=== PATIENT | female | born 1945 | race Caucasian/White ===

== ENCOUNTER 2023-06-11 20:53 | Inpatient (IN) ==
[2023-06-11 21:45] LABS: Hematocrit 18.6 % (35-45); Hemoglobin 6.8 g/dL (11.5-14.3); Mean Corpuscular Hemoglobin 30.3 pg (27-33); Mean Corpuscular Hgb Conc 36.6 g/dL (31-36); Mean Corpuscular Volume 82.8 fL (80-97); Red Blood Count 2.25 10^6/uL (3.63-4.92); Red Cell Distribution Width 16.3 % (12-17); White Blood Count 4.5 10^3/uL (3.8-11.8)
[2023-06-11 21:59] LABS: Albumin/Globulin Ratio 1.3 (1-3); Calcium 8.1 mg/dL (8.6-10.3); Creatinine, Serum 0.77 mg/dL (0.51-0.95); Potassium 3.7 mmol/L (3.5-5.0); Total Bilirubin 0.6 mg/dL (0.2-1.0); eGFR CKD-EPI 79.9 (>60)
[2023-06-11 22:22] LABS: ABS Lymphocytes 1.7 10^3/uL (1.0-4.8); ABS Monocytes 0.6 10^3/uL (0.0-0.9); ABS Neutrophils 2.1 10^3/uL (1.5-7.6); ABS Nucleated RBC 0.01 10^3/ul; Eosinophil % 0.8 %; Lymphocyte % 37.6 %; Mean Platelet Volume 8.1 fL (7.5-11.2); Nucleated Red Blood Cells % 0.3 %/100WBC (0.0-0.8); Platelet Count 16 10^3/uL (150-450); RBC Morphology Normal (Normal)
[2023-06-11 23:08] LABS: High Sensitivity Troponin 1 Hr 7 pg/mL (<15)
[2023-06-12] MEDS ORDERED: Albuterol HFA INHALER 8 gm MDI INH PRN (00:53)
[2023-06-12 03:10] LABS: Hematocrit for Retic CNT 18.6 % (35-45); RBC Retic Count 2.25 10^6/ul (3.63-4.92)
[2023-06-12 03:30] LABS: Folate 11.41 ng/mL (5.90-24.80)
[2023-06-12 05:20] LABS: Hematocrit 22.1 % (35-45); Hemoglobin 7.9 g/dL (11.5-14.3); Mean Corpuscular Hemoglobin 30.1 pg (27-33); Mean Corpuscular Hgb Conc 35.7 g/dL (31-36); Mean Corpuscular Volume 84.3 fL (80-97); Red Blood Count 2.62 10^6/uL (3.63-4.92); Red Cell Distribution Width 15.9 % (12-17); White Blood Count 4.1 10^3/uL (3.8-11.8)
[2023-06-12 05:46] LABS: C Reactive Protein 5.47 mg/L (<8.01); Calcium 7.9 mg/dL (8.6-10.3); Creatinine, Serum 0.8 mg/dL (0.51-0.95); Magnesium 2.4 mg/dL (1.9-2.7); Potassium 3.8 mmol/L (3.5-5.0); eGFR CKD-EPI 76.3 (>60)
[2023-06-12 06:05] LABS: Ferritin 406.7 ng/mL (11-307)
[2023-06-12 07:25] LABS: Mean Platelet Volume 8.2 fL (7.5-11.2); Platelet Count 16 10^3/uL (150-450)
[2023-06-12 07:29] LABS: ABS Lymphocytes 1.4 10^3/uL (1.0-4.8); ABS Monocytes 0.5 10^3/uL (0.0-0.9); ABS Neutrophils 2.1 10^3/uL (1.5-7.6); Eosinophil % 1.1 %; Lymphocyte % 34.4 %; Nucleated Red Blood Cells % 0.1 %/100WBC (0.0-0.8)
[2023-06-12] MEDS ORDERED: Pantoprazole VIAL 40 MG VIAL IV SCH (09:00)
[2023-06-12] MEDS: Tiotropium Brom/Olodaterol MDI (ACUTE) INH SCH (10:37)
[2023-06-12] MEDS: CMCS:Anastrozole 1 mg TAB (NF) PO SCH (10:40)
[2023-06-12] MEDS: Lidocaine 2% PF 5 ML VIAL INJ ONE (12:53)
[2023-06-12 13:01] LABS: Hepatitis B Surface Antigen Nonreactive (Nonreactive)
[2023-06-12 13:06] LABS: Hepatitis A Ab IgM Negative (Negative)
[2023-06-12 13:07] LABS: Hepatitis B Core IgM Nonreactive (Nonreactive)
[2023-06-12 13:10] LABS: HIV 4th Generation Nonreactive (Nonreactive)
[2023-06-12] MEDS: Cyanocobalamin INJ 1,000 MCG/ML VIAL 1 ML VIAL IM SCH (13:12)
[2023-06-12 13:19] LABS: Hepatitis C Antibody Negative (Negative)
[2023-06-12 13:47] LABS: INR 1.13 (0.83-1.13)
[2023-06-12 17:07] LABS: Platelet Count 18 10^3/uL (150-450)
[2023-06-13] MEDS: Ondansetron 4 mg VIAL 2 MG/ML 2 ml VIAL IV ONE (00:41)
[2023-06-13 06:12] LABS: Creatinine, Serum 0.73 mg/dL (0.51-0.95); Magnesium 2.1 mg/dL (1.9-2.7); Potassium 4.2 mmol/L (3.5-5.0); eGFR CKD-EPI 85.2 (>60)
[2023-06-13 06:20] LABS: Hematocrit 21.2 % (35-45); Hemoglobin 7.7 g/dL (11.5-14.3); Mean Corpuscular Hemoglobin 30.9 pg (27-33); Mean Corpuscular Hgb Conc 36.4 g/dL (31-36); Mean Corpuscular Volume 84.8 fL (80-97); Mean Platelet Volume 7.7 fL (7.5-11.2); Platelet Count 37 10^3/uL (150-450); Red Blood Count 2.51 10^6/uL (3.63-4.92); Red Cell Distribution Width 15.8 % (12-17); White Blood Count 5.4 10^3/uL (3.8-11.8)
[2023-06-13 06:21] LABS: Anisocytosis 2+; Macrocytosis 1+; Microcytosis 1+
[2023-06-13 08:51] LABS: ABS Eosinophils 0.1 10^3/uL (0.0-0.5); ABS Lymphocytes 1.7 10^3/uL (1.0-4.8); ABS Monocytes 0.9 10^3/uL (0.0-0.9); ABS Neutrophils 2.7 10^3/uL (1.5-7.6); ABS Nucleated RBC 0.01 10^3/ul; Eosinophil % 1.2 %; Lymphocyte % 31.9 %; Nucleated Red Blood Cells % 0.2 %/100WBC (0.0-0.8)
[2023-06-14 07:13] LABS: Calcium 8.2 mg/dL (8.6-10.3); Creatinine, Serum 0.79 mg/dL (0.51-0.95); Potassium 4.5 mmol/L (3.5-5.0); eGFR CKD-EPI 77.5 (>60)
[2023-06-14 07:45] LABS: Hematocrit 19.7 % (35-45); Hemoglobin 6.9 g/dL (11.5-14.3); Mean Corpuscular Hemoglobin 29.9 pg (27-33); Mean Corpuscular Hgb Conc 35.2 g/dL (31-36); Mean Corpuscular Volume 85.1 fL (80-97); Mean Platelet Volume 8.2 fL (7.5-11.2); Platelet Count 21 10^3/uL (150-450); Red Blood Count 2.31 10^6/uL (3.63-4.92); Red Cell Distribution Width 15.7 % (12-17); White Blood Count 4.7 10^3/uL (3.8-11.8)
[2023-06-14 08:00] LABS: ABS Eosinophils 0.1 10^3/uL (0.0-0.5); ABS Lymphocytes 1.6 10^3/uL (1.0-4.8); ABS Monocytes 0.7 10^3/uL (0.0-0.9); ABS Neutrophils 2.3 10^3/uL (1.5-7.6); ABS Nucleated RBC 0.01 10^3/ul; Anisocytosis 2+; Eosinophil % 2.4 %; Lymphocyte % 33.4 %; Nucleated Red Blood Cells % 0.2 %/100WBC (0.0-0.8)
[2023-06-14 09:44] LABS: INR 1.1 (0.83-1.13)
[2023-06-14 14:10] LABS: Direct Bilirubin 0.1 mg/dL (0.03-0.18); Indirect Bilirubin 0.4 mg/dL (0.3-1.0); Total Bilirubin 0.5 mg/dL (0.2-1.0)
[2023-06-14 14:41] LABS: Parvovirus (B19) IgG Antibody Positive (Negative); Parvovirus (B19) IgM Antibody Negative (Negative)
[2023-06-14 16:08] LABS: Cytomegalovirus IgG Antibody Positive (Negative)
[2023-06-14 16:20] LABS: Hematocrit 22.5 % (35-45); Hemoglobin 8.2 g/dL (11.5-14.3); Mean Corpuscular Hemoglobin 30.2 pg (27-33); Mean Corpuscular Hgb Conc 36.3 g/dL (31-36); Mean Corpuscular Volume 83.3 fL (80-97); Red Cell Distribution Width 16.8 % (12-17); White Blood Count 5.1 10^3/uL (3.8-11.8)
[2023-06-14] MEDS: fentaNYL 100 mcg/2 ml 50 MCG/ML VIAL ONE (16:27)
[2023-06-14] MEDS: Midazolam 2 mg/2 ml VIAL 1 mg/ml 2 ml VIAL (2 mg) ONE (16:27)
[2023-06-14 16:43] LABS: Mean Platelet Volume 7.8 fL (7.5-11.2); Platelet Count 18 10^3/uL (150-450)
[2023-06-15 00:25] LABS: Mean Platelet Volume 8.3 fL (7.5-11.2); Platelet Count 25 10^3/uL (150-450)
[2023-06-15 06:51] LABS: Calcium 8.4 mg/dL (8.6-10.3); Creatinine, Serum 0.83 mg/dL (0.51-0.95); Magnesium 1.9 mg/dL (1.9-2.7); Potassium 4.5 mmol/L (3.5-5.0)
[2023-06-15 07:11] LABS: Hematocrit 20.8 % (35-45); Hemoglobin 7.5 g/dL (11.5-14.3); Mean Corpuscular Hemoglobin 29.8 pg (27-33); Mean Corpuscular Hgb Conc 36.1 g/dL (31-36); Mean Corpuscular Volume 82.6 fL (80-97); Red Blood Count 2.52 10^6/uL (3.63-4.92); Red Cell Distribution Width 16.7 % (12-17); White Blood Count 5.5 10^3/uL (3.8-11.8)
[2023-06-15 08:43] LABS: ABS Eosinophils 0.1 10^3/uL (0.0-0.5); ABS Lymphocytes 1.7 10^3/uL (1.0-4.8); ABS Monocytes 1.1 10^3/uL (0.0-0.9); ABS Neutrophils 2.6 10^3/uL (1.5-7.6); Eosinophil % 1.7 %; Lymphocyte % 31.3 %; Mean Platelet Volume 7.9 fL (7.5-11.2); Nucleated Red Blood Cells % 0.1 %/100WBC (0.0-0.8); Platelet Count 19 10^3/uL (150-450)
[2023-06-15 08:44] LABS: Anisocytosis 2+
[2023-06-15 15:08] LABS: Mean Platelet Volume 8.1 fL (7.5-11.2); Platelet Count 23 10^3/uL (150-450)
[2023-06-16] MEDS ORDERED: Magnesium Hydroxide LIQ 30 ML UDC PO PRN (00:51)
[2023-06-16] MEDS ORDERED: Senna TAB 8.6 mg TAB PO PRN (00:51)
[2023-06-16] MEDS ORDERED: Polyethylene Glycol 3350 17 GM PACKET PO PRN (00:51)
[2023-06-16 01:10] LABS: Hematocrit 20.3 % (35-45); Hemoglobin 7.4 g/dL (11.5-14.3); Mean Corpuscular Hgb Conc 36.5 g/dL (31-36); Mean Corpuscular Volume 82.2 fL (80-97); Mean Platelet Volume 8.4 fL (7.5-11.2); Platelet Count 29 10^3/uL (150-450); Red Blood Count 2.47 10^6/uL (3.63-4.92); Red Cell Distribution Width 16.8 % (12-17); White Blood Count 6.3 10^3/uL (3.8-11.8)
[2023-06-16] MEDS: Magnesium Hydroxide LIQ 30 ML UDC PO SCH (01:21)
[2023-06-16] MEDS: Furosemide 20 mg/2 ml IV VIAL IV SLOW PU ONE (01:21)
[2023-06-16 02:00] LABS: Urine Appearance Clear; Urine Bilirubin Negative (Negative); Urine Blood Negative (Negative); Urine Color Light-Yellow; Urine Glucose Negative (Negative); Urine Ketones Negative (Negative); Urine Nitrite Negative (Negative); Urine Protein Negative (Negative); Urine Specific Gravity 1.014 (1.002-1.030); Urine Urobilinogen Negative (Negative)
[2023-06-16 02:07] LABS: ABS Basophils 0.1 10^3/uL (0.0-0.1); ABS Eosinophils 0.1 10^3/uL (0.0-0.5); ABS Lymphocytes 1.9 10^3/uL (1.0-4.8); ABS Monocytes 1.2 10^3/uL (0.0-0.9); Anisocytosis 1+; Eosinophil % 1.4 %; Lymphocyte % 29.5 %; Nucleated Red Blood Cells % 0.1 %/100WBC (0.0-0.8)
[2023-06-16 02:24] LABS: Urine Bacteria Absent /HPF (Absent); Urine Red Blood Cell Trace(0-2/hpf) /HPF (0-Trace); Urine White Blood Cell Trace(0-5/hpf) /HPF (0-Trace)
[2023-06-16 06:06] LABS: Hematocrit 20.5 % (35-45); Hemoglobin 7.4 g/dL (11.5-14.3); Mean Corpuscular Hemoglobin 30.4 pg (27-33); Mean Corpuscular Hgb Conc 36.3 g/dL (31-36); Mean Corpuscular Volume 83.9 fL (80-97); Mean Platelet Volume 8.4 fL (7.5-11.2); Platelet Count 26 10^3/uL (150-450); Red Blood Count 2.44 10^6/uL (3.63-4.92); Red Cell Distribution Width 16.6 % (12-17); White Blood Count 5.8 10^3/uL (3.8-11.8)
[2023-06-16 06:09] LABS: Calcium 8.9 mg/dL (8.6-10.3); Creatinine, Serum 0.8 mg/dL (0.51-0.95); Potassium 4.2 mmol/L (3.5-5.0); eGFR CKD-EPI 76.3 (>60)
[2023-06-16] MEDS ORDERED: Glycerin ADULT 2.4 gm SUPP PR PRN (06:21)
[2023-06-16] MEDS ORDERED: Dibucaine 1% OINT 28.35 GM TUBE PR PRN (10:04)
[2023-06-16] MEDS: Zinc Oxide 16% PASTE (Butt Paste) 30 gm TUBE TOPICAL SCH (10:45)
[2023-06-16] MEDS: Polyethylene Glycol 3350 17 GM PACKET PO SCH (10:45)
[2023-06-16 11:44] LABS: Activated Partial Thrombo Time 27.3 seconds (26.0-38.0); INR 1.16 (0.83-1.13)
[2023-06-16 14:37] LABS: Anaplasma phagocytophilum Negative (Negative); B. miyamotoi PCR, B Negative (Negative); Babesia divergens/MO-1 Negative (Negative); Babesia ducani Negative (Negative); Ehrlichia chaffeensis Negative (Negative); Ehrlichia ewingii/canis Negative (Negative); Ehrlichia muris eauclairensis Negative (Negative)
[2023-06-17 05:31] LABS: ABS Basophils 0.1 10^3/uL (0.0-0.1); ABS Eosinophils 0.1 10^3/uL (0.0-0.5); ABS Lymphocytes 1.7 10^3/uL (1.0-4.8); ABS Monocytes 0.7 10^3/uL (0.0-0.9); ABS Neutrophils 2.6 10^3/uL (1.5-7.6); ABS Nucleated RBC 0.01 10^3/ul; Eosinophil % 1.8 %; Hematocrit 20.2 % (35-45); Hemoglobin 7.3 g/dL (11.5-14.3); Lymphocyte % 33.6 %; Mean Corpuscular Hemoglobin 30.4 pg (27-33); Mean Corpuscular Hgb Conc 36.3 g/dL (31-36); Mean Corpuscular Volume 83.7 fL (80-97); Mean Platelet Volume 8.5 fL (7.5-11.2); Nucleated Red Blood Cells % 0.2 %/100WBC (0.0-0.8); Platelet Count 13 10^3/uL (150-450); Red Blood Count 2.41 10^6/uL (3.63-4.92); Red Cell Distribution Width 16.2 % (12-17); White Blood Count 5.2 10^3/uL (3.8-11.8)
[2023-06-17 06:03] LABS: Calcium 8.6 mg/dL (8.6-10.3); Creatinine, Serum 0.79 mg/dL (0.51-0.95); Potassium 4.4 mmol/L (3.5-5.0); eGFR CKD-EPI 77.5 (>60)
[2023-06-17 13:00] LABS: Kappa Free Light Chain 4.69 mg/dL; Lambda Free Light Chain, S 2.28 mg/dL
[2023-06-17 19:23] LABS: Hematocrit 20.5 % (35-45); Hemoglobin 7.3 g/dL (11.5-14.3); Mean Corpuscular Hemoglobin 29.8 pg (27-33); Mean Corpuscular Hgb Conc 35.7 g/dL (31-36); Mean Corpuscular Volume 83.4 fL (80-97); Red Blood Count 2.46 10^6/uL (3.63-4.92); Red Cell Distribution Width 16.2 % (12-17); White Blood Count 5.3 10^3/uL (3.8-11.8)
[2023-06-17 19:54] LABS: ABS Eosinophils 0.1 10^3/uL (0.0-0.5); ABS Lymphocytes 1.6 10^3/uL (1.0-4.8); ABS Neutrophils 2.7 10^3/uL (1.5-7.6); ABS Nucleated RBC 0.01 10^3/ul; Eosinophil % 1.2 %; Lymphocyte % 29.9 %; Mean Platelet Volume 8.2 fL (7.5-11.2); Nucleated Red Blood Cells % 0.1 %/100WBC (0.0-0.8); Platelet Count 13 10^3/uL (150-450); RBC Morphology Normal (Normal)
[2023-06-17] MEDS: Calcium Polycarbophil 625mg TB PO SCH (21:07)
[2023-06-18 05:12] LABS: Mean Corpuscular Hemoglobin 30.7 pg (27-33); Mean Corpuscular Hgb Conc 36.8 g/dL (31-36); Mean Corpuscular Volume 83.3 fL (80-97); Mean Platelet Volume 7.8 fL (7.5-11.2); Platelet Count 14 10^3/uL (150-450); Red Blood Count 2.29 10^6/uL (3.63-4.92); Red Cell Distribution Width 16.3 % (12-17); White Blood Count 5.2 10^3/uL (3.8-11.8)
[2023-06-18 05:27] LABS: ABS Basophils 0.1 10^3/uL (0.0-0.1); ABS Eosinophils 0.1 10^3/uL (0.0-0.5); ABS Lymphocytes 1.5 10^3/uL (1.0-4.8); ABS Neutrophils 2.7 10^3/uL (1.5-7.6); Anisocytosis 1+; Eosinophil % 1.1 %; Lymphocyte % 27.8 %
[2023-06-18 05:37] LABS: Calcium 8.5 mg/dL (8.6-10.3); Creatinine, Serum 0.81 mg/dL (0.51-0.95); Phosphorus 3.8 mg/dL (2.5-5.0); Potassium 4.2 mmol/L (3.5-5.0); eGFR CKD-EPI 75.2 (>60)
[2023-06-18 09:59] LABS: Flag, M-protein Isotype Positive (Negative); Immunoglobulin A (IgA), S 198 mg/dL (61 - 356); Immunoglobulin G (IgG), S 1540 mg/dL (767 - 1590); Immunoglobulin M (IgM), S 165 mg/dL (37 - 286); M-protein GK 0.124 g/dL
[2023-06-18 11:29] LABS: Methylmalonic Acid 0.15 nmol/mL (<=0.40)
[2023-06-18 16:29] LABS: Hematocrit 18.8 % (35-45); Hemoglobin 6.7 g/dL (11.5-14.3); Mean Corpuscular Hgb Conc 35.9 g/dL (31-36); Mean Corpuscular Volume 83.5 fL (80-97); Mean Platelet Volume 8.2 fL (7.5-11.2); Platelet Count 15 10^3/uL (150-450); Red Blood Count 2.25 10^6/uL (3.63-4.92); Red Cell Distribution Width 16.2 % (12-17); White Blood Count 5.2 10^3/uL (3.8-11.8)
[2023-06-18 17:12] LABS: ABS Lymphocytes 1.4 10^3/uL (1.0-4.8); ABS Neutrophils 2.7 10^3/uL (1.5-7.6); ABS Nucleated RBC 0.01 10^3/ul; Eosinophil % 0.9 %; Lymphocyte % 27.3 %; Nucleated Red Blood Cells % 0.1 %/100WBC (0.0-0.8); RBC Morphology Normal (Normal); Smudge Cells Present
[2023-06-19 03:00] LABS: Hematocrit 21.2 % (35-45); Hemoglobin 7.7 g/dL (11.5-14.3); Mean Corpuscular Hemoglobin 30.3 pg (27-33); Mean Corpuscular Hgb Conc 36.4 g/dL (31-36); Mean Corpuscular Volume 83.2 fL (80-97); Mean Platelet Volume 8.8 fL (7.5-11.2); Platelet Count 13 10^3/uL (150-450); Red Blood Count 2.55 10^6/uL (3.63-4.92); Red Cell Distribution Width 15.5 % (12-17)
[2023-06-19 04:04] LABS: ABS Basophils 0.1 10^3/uL (0.0-0.1); ABS Eosinophils 0.1 10^3/uL (0.0-0.5); ABS Lymphocytes 2.2 10^3/uL (1.0-4.8); ABS Monocytes 1.5 10^3/uL (0.0-0.9); ABS Neutrophils 3.2 10^3/uL (1.5-7.6); ABS Nucleated RBC 0.02 10^3/ul; Eosinophil % 0.8 %; Nucleated Red Blood Cells % 0.3 %/100WBC (0.0-0.8); RBC Morphology Normal (Normal)
[2023-06-19 08:25] LABS: Hematocrit 23.3 % (35-45); Hemoglobin 8.4 g/dL (11.5-14.3); Mean Corpuscular Volume 83.2 fL (80-97); Mean Platelet Volume 8.6 fL (7.5-11.2); Platelet Count 13 10^3/uL (150-450); Red Cell Distribution Width 15.9 % (12-17); White Blood Count 7.3 10^3/uL (3.8-11.8)
[2023-06-19 08:59] LABS: Calcium 8.6 mg/dL (8.6-10.3); Creatinine, Serum 0.76 mg/dL (0.51-0.95); Potassium 4.1 mmol/L (3.5-5.0); eGFR CKD-EPI 81.2 (>60)
[2023-06-19 09:33] LABS: ABS Basophils 0.1 10^3/uL (0.0-0.1); ABS Eosinophils 0.1 10^3/uL (0.0-0.5); ABS Monocytes 1.5 10^3/uL (0.0-0.9); ABS Neutrophils 3.7 10^3/uL (1.5-7.6); ABS Nucleated RBC 0.02 10^3/ul; Eosinophil % 0.8 %; Lymphocyte % 27.4 %; Nucleated Red Blood Cells % 0.2 %/100WBC (0.0-0.8); RBC Morphology Normal (Normal)
[2023-06-20 00:17] LABS: Hematocrit 24.6 % (35-45); Mean Corpuscular Hemoglobin 30.5 pg (27-33); Mean Corpuscular Hgb Conc 36.4 g/dL (31-36); Red Blood Count 2.94 10^6/uL (3.63-4.92); Red Cell Distribution Width 15.2 % (12-17); White Blood Count 7.2 10^3/uL (3.8-11.8)
[2023-06-20 02:22] LABS: ABS Lymphocytes 2.3 10^3/uL (1.0-4.8); ABS Monocytes 1.5 10^3/uL (0.0-0.9); ABS Neutrophils 3.3 10^3/uL (1.5-7.6); ABS Nucleated RBC 0.03 10^3/ul; Eosinophil % 0.7 %; Lymphocyte % 32.4 %; Mean Platelet Volume 8.9 fL (7.5-11.2); Nucleated Red Blood Cells % 0.5 %/100WBC (0.0-0.8); Platelet Count 10 10^3/uL (150-450)
[2023-06-20 02:23] LABS: Anisocytosis 1+
[2023-06-20 06:28] LABS: Hematocrit 24.1 % (35-45); Hemoglobin 8.8 g/dL (11.5-14.3); Mean Corpuscular Hemoglobin 30.2 pg (27-33); Mean Corpuscular Hgb Conc 36.4 g/dL (31-36); Mean Corpuscular Volume 82.8 fL (80-97); Red Blood Count 2.91 10^6/uL (3.63-4.92); White Blood Count 6.8 10^3/uL (3.8-11.8)
[2023-06-20 07:33] LABS: Calcium 8.1 mg/dL (8.6-10.3); Creatinine, Serum 0.76 mg/dL (0.51-0.95); Magnesium 1.9 mg/dL (1.9-2.7); Phosphorus 2.7 mg/dL (2.5-5.0); Potassium 3.8 mmol/L (3.5-5.0); eGFR CKD-EPI 81.2 (>60)
[2023-06-20 09:45] LABS: ABS Basophils 0.1 10^3/uL (0.0-0.1); ABS Eosinophils 0.1 10^3/uL (0.0-0.5); ABS Monocytes 1.5 10^3/uL (0.0-0.9); ABS Neutrophils 3.3 10^3/uL (1.5-7.6); ABS Nucleated RBC 0.01 10^3/ul; Eosinophil % 0.8 %; Lymphocyte % 28.7 %; Mean Platelet Volume 8.8 fL (7.5-11.2); Nucleated Red Blood Cells % 0.2 %/100WBC (0.0-0.8); Platelet Count 9 10^3/uL (150-450); RBC Morphology Normal (Normal)
[2023-06-20 18:02] VITALS: BP 148/62
[2023-06-20 18:47] LABS: Hematocrit 27.2 % (35-45); Hemoglobin 9.7 g/dL (11.5-14.3); Mean Corpuscular Hemoglobin 30.5 pg (27-33); Mean Corpuscular Hgb Conc 35.9 g/dL (31-36); Mean Platelet Volume 8.7 fL (7.5-11.2); Platelet Count 10 10^3/uL (150-450); Red Cell Distribution Width 15.2 % (12-17); White Blood Count 6.7 10^3/uL (3.8-11.8)
[2023-06-20 19:36] LABS: ABS Monocytes 1.6 10^3/uL (0.0-0.9); ABS Nucleated RBC 0.01 10^3/ul; Eosinophil % 0.7 %; Lymphocyte % 30.1 %; Nucleated Red Blood Cells % 0.1 %/100WBC (0.0-0.8); RBC Morphology Normal (Normal)
[2023-07-01 12:09] LABS: BM Chromosome Source Right PIC; BM Referral Reason D61.81 pancytopenia; BM Result Summary Abnormal
[2023-07-01 12:11] LABS: AMLAF Reason for Referral D61.81 pancytopenia; AMLAF Result Summary Abnormal; AMLAF Source Right PIC
== END 2023-06-20 18:30 | disposition home or self-care (01) | DRG 835 ==
LOC: EDHOLD 20:53 → ED 20:53 → SUATTDRO 23:16 → MEDTELE 06-12 10:28 → MED 06-12 10:51 → SUATTDRO 06-12 16:08 → MED 06-16 22:12
PROVIDERS: ADMIT Internal Medicine; ATTEND Internal Medicine

== ENCOUNTER 2023-06-25 15:52 | Inpatient (IN) ==
[2023-06-25 17:52] LABS: Hematocrit 22.9 % (35-45); Hemoglobin 8.1 g/dL (11.5-14.3); Mean Corpuscular Hemoglobin 29.9 pg (27-33); Mean Corpuscular Hgb Conc 35.2 g/dL (31-36); Mean Corpuscular Volume 84.8 fL (80-97); Mean Platelet Volume 9.7 fL (7.5-11.2); Platelet Count 5 10^3/uL (150-450); Red Cell Distribution Width 14.9 % (12-17); White Blood Count 2.7 10^3/uL (3.8-11.8)
[2023-06-25 18:27] LABS: ABS Lymphocytes 0.6 10^3/uL (1.0-4.8); ABS Monocytes 0.4 10^3/uL (0.0-0.9); ABS Neutrophils 1.6 10^3/uL (1.5-7.6); ABS Nucleated RBC 0.01 10^3/ul; Eosinophil % 0.2 %; Lymphocyte % 22.5 %; Nucleated Red Blood Cells % 0.4 %/100WBC (0.0-0.8); RBC Morphology Normal (Normal)
[2023-06-25 18:43] LABS: Albumin 3.4 g/dL (3.2-5.2); Albumin/Globulin Ratio 1.1 (1-3); C Reactive Protein 19.13 mg/L (<8.01); Calcium 7.6 mg/dL (8.6-10.3); Creatinine, Serum 0.72 mg/dL (0.51-0.95); Direct Bilirubin 0.3 mg/dL (0.03-0.18); Globulin 3.1 g/dL (2-4); Potassium 3.5 mmol/L (3.5-5.0); Total Protein 6.5 g/dL (6.4-8.9); eGFR CKD-EPI 86.6 (>60)
[2023-06-25 18:47] LABS: Hematocrit 25.6 % (35-45); Hemoglobin 8.5 g/dL (11.5-14.3); Mean Corpuscular Hemoglobin 30.1 pg (27-33); Mean Corpuscular Hgb Conc 33.3 g/dL (31-36); Mean Corpuscular Volume 90.2 fL (80-97); Mean Platelet Volume 11.9 fL (7.5-11.2); Platelet Count 3 10^3/uL (150-450); Red Blood Count 2.84 10^6/uL (3.63-4.92); Red Cell Distribution Width 15.2 % (12-17); White Blood Count 2.8 10^3/uL (3.8-11.8)
[2023-06-25 19:27] LABS: ABS Lymphocytes 0.5 10^3/uL (1.0-4.8); ABS Monocytes 0.4 10^3/uL (0.0-0.9); ABS Neutrophils 1.8 10^3/uL (1.5-7.6); ABS Nucleated RBC 0.01 10^3/ul; Eosinophil % 0.2 %; Lymphocyte % 19.1 %; Nucleated Red Blood Cells % 0.3 %/100WBC (0.0-0.8); RBC Morphology Normal (Normal)
[2023-06-25 19:56] LABS: Urine Appearance Clear; Urine Bilirubin Negative (Negative); Urine Blood Negative (Negative); Urine Color Yellow; Urine Glucose Negative (Negative); Urine Ketones 1+ (Negative); Urine Nitrite Negative (Negative); Urine Protein Trace (Negative); Urine Specific Gravity 1.028 (1.002-1.030); Urine Urobilinogen Negative (Negative); Urine pH 5.5 (5.0-8.0)
[2023-06-26] MEDS ORDERED: Dibucaine 1% OINT 28.35 GM TUBE PR PRN (01:21)
[2023-06-26 06:10] LABS: Hematocrit 22.5 % (35-45); Hemoglobin 8.2 g/dL (11.5-14.3); Mean Corpuscular Hemoglobin 30.8 pg (27-33); Mean Corpuscular Hgb Conc 36.4 g/dL (31-36); Mean Corpuscular Volume 84.6 fL (80-97); Platelet Count 5 10^3/uL (150-450); Red Blood Count 2.66 10^6/uL (3.63-4.92); Red Cell Distribution Width 15.1 % (12-17); White Blood Count 4.3 10^3/uL (3.8-11.8)
[2023-06-26 06:18] LABS: Calcium 7.9 mg/dL (8.6-10.3); Creatinine, Serum 0.66 mg/dL (0.51-0.95); eGFR CKD-EPI 90.9 (>60)
[2023-06-26] MEDS: CMCS:Anastrozole 1 mg TAB (NF) PO SCH (08:46)
[2023-06-26] MEDS: Tiotropium Brom/Olodaterol MDI (ACUTE) INH SCH (09:03)
[2023-06-26] MEDS: VENETOCLAX 100 MG PO ONE (12:21)
[2023-06-26] MEDS: Dexamethasone IV 40 MG in NS 0.9% 50 ML 50 ML IVPB ONE (13:26)
[2023-06-26 13:37] LABS: ABS Lymphocytes 0.6 10^3/uL (1.0-4.8); ABS Monocytes 0.4 10^3/uL (0.0-0.9); ABS Neutrophils 4.8 10^3/uL (1.5-7.6); ABS Nucleated RBC 0.01 10^3/ul; Hematocrit 23.7 % (35-45); Hemoglobin 8.6 g/dL (11.5-14.3); Lymphocyte % 10.2 %; Mean Corpuscular Hemoglobin 31.9 pg (27-33); Mean Corpuscular Hgb Conc 36.4 g/dL (31-36); Mean Corpuscular Volume 87.6 fL (80-97); Mean Platelet Volume 9.5 fL (7.5-11.2); Nucleated Red Blood Cells % 0.2 %/100WBC (0.0-0.8); Platelet Count 7 10^3/uL (150-450); Red Blood Count 2.71 10^6/uL (3.63-4.92); Red Cell Distribution Width 14.7 % (12-17); White Blood Count 5.8 10^3/uL (3.8-11.8)
[2023-06-26] MEDS: NS 0.9% IVPB ONE (14:19)
[2023-06-26] MEDS: DECITABINE IVPB ONE (14:19)
[2023-06-26] MEDS: Hydrocortisone INJ 100 MG/2ML 2 ML VIAL IV ONE (15:10)
[2023-06-26] MEDS: Famotidine IV 10 MG/ML 2 ml VIAL (20 mg) IV SLOW PU ONE (15:10)
[2023-06-26] MEDS: methylPREDNISolone SOD SUCC 40 mg/ml 1 ml VIAL IV ONE ×2 (15:10→16:28)
[2023-06-26] MEDS: Albuterol HFA INHALER 8 gm MDI INH PRN (15:58)
[2023-06-26] MEDS: Furosemide 40 mg/4 ml IV VIAL IV ONE (19:56)
[2023-06-27 00:46] LABS: Hematocrit 22.1 % (35-45); Hemoglobin 7.9 g/dL (11.5-14.3); Mean Corpuscular Hemoglobin 30.6 pg (27-33); Mean Corpuscular Volume 84.9 fL (80-97); Red Cell Distribution Width 14.7 % (12-17); White Blood Count 6.2 10^3/uL (3.8-11.8)
[2023-06-27 01:03] LABS: ABS Lymphocytes 0.5 10^3/uL (1.0-4.8); ABS Monocytes 0.4 10^3/uL (0.0-0.9); ABS Neutrophils 5.3 10^3/uL (1.5-7.6); ABS Nucleated RBC 0.01 10^3/ul; Lymphocyte % 8.1 %; Mean Platelet Volume 7.9 fL (7.5-11.2); Nucleated Red Blood Cells % 0.2 %/100WBC (0.0-0.8); Platelet Count 13 10^3/uL (150-450)
[2023-06-27] MEDS: guaiFENesin 100 mg/5 ml LIQ unit dose cup PO PRN (01:26)
[2023-06-27] MEDS: Albuterol/Ipratropium NEB.SOL (2.5/0.5 MG) 3 ML NEB.SOLN INH PRN (05:57)
[2023-06-27 08:32] LABS: Creatinine, Serum 0.69 mg/dL (0.51-0.95); Potassium 3.7 mmol/L (3.5-5.0); eGFR CKD-EPI 89.9 (>60)
[2023-06-27 08:33] LABS: ABS Lymphocytes 0.7 10^3/uL (1.0-4.8); ABS Monocytes 0.6 10^3/uL (0.0-0.9); ABS Neutrophils 6.5 10^3/uL (1.5-7.6); ABS Nucleated RBC 0.01 10^3/ul; Hematocrit 22.7 % (35-45); Hemoglobin 8.1 g/dL (11.5-14.3); Lymphocyte % 9.4 %; Mean Corpuscular Hemoglobin 30.1 pg (27-33); Mean Corpuscular Hgb Conc 35.6 g/dL (31-36); Mean Corpuscular Volume 84.7 fL (80-97); Mean Platelet Volume 8.1 fL (7.5-11.2); Nucleated Red Blood Cells % 0.2 %/100WBC (0.0-0.8); Platelet Count 11 10^3/uL (150-450); Red Blood Count 2.67 10^6/uL (3.63-4.92); Red Cell Distribution Width 14.9 % (12-17); White Blood Count 7.8 10^3/uL (3.8-11.8)
[2023-06-27] MEDS ORDERED: Famotidine IV 10 MG/ML 2 ml VIAL (20 mg) IV SLOW PU PRN (11:57)
[2023-06-27] MEDS ORDERED: methylPREDNISolone SOD SUCC 40 mg/ml 1 ml VIAL IV PRN (11:57)
[2023-06-27] MEDS: VENETOCLAX 100 MG PO SCH (12:31)
[2023-06-27] MEDS: NS 0.9% IVPB ONE (14:26)
[2023-06-27] MEDS: DECITABINE IVPB ONE (14:26)
[2023-06-27] MEDS: Ondansetron ODT 4 mg TAB 4 MG TAB PO PRN (15:41)
[2023-06-27] MEDS ORDERED: Zosyn per Pharmacy NOTE FOLLOW UP SCH (17:00)
[2023-06-27] MEDS: Furosemide 20 mg/2 ml IV VIAL IV ONE (18:35)
[2023-06-27] MEDS: Piperacillin/Tazobac 3.375 BAG 3.375 GM/100 ML BAG IV ONE (18:40)
[2023-06-27] MEDS: ZOSYN 3.375 GM Q8H per EXTENDED INFUSION IV SCH (22:24)
[2023-06-28] MEDS ORDERED: Furosemide 100 mg/10 ml IV VIAL IV ONE (03:31)
[2023-06-28] MEDS: Furosemide 40 mg/4 ml IV VIAL IV ONE ×2 (03:46→12:01)
[2023-06-28 06:09] LABS: Calcium 7.6 mg/dL (8.6-10.3); Creatinine, Serum 1.04 mg/dL (0.51-0.95); Magnesium 1.8 mg/dL (1.9-2.7); Phosphorus 4.7 mg/dL (2.5-5.0); Potassium 3.6 mmol/L (3.5-5.0); eGFR CKD-EPI 55.7 (>60)
[2023-06-28] MEDS: Albuterol/Ipratropium NEB.SOL (2.5/0.5 MG) 3 ML NEB.SOLN INH SCH ×2 (07:08→11:31)
[2023-06-28] MEDS: methylPREDNISolone SOD SUCC 40 mg/ml 1 ml VIAL IV SCH (09:36)
[2023-06-28 14:10] LABS: ABS Lymphocytes 0.4 10^3/uL (1.0-4.8); ABS Monocytes 0.3 10^3/uL (0.0-0.9); ABS Neutrophils 4.4 10^3/uL (1.5-7.6); ABS Nucleated RBC 0.02 10^3/ul; Hematocrit 19.9 % (35-45); Lymphocyte % 7.3 %; Mean Corpuscular Hemoglobin 30.5 pg (27-33); Mean Corpuscular Hgb Conc 35.2 g/dL (31-36); Mean Corpuscular Volume 86.4 fL (80-97); Mean Platelet Volume 9.2 fL (7.5-11.2); Nucleated Red Blood Cells % 0.3 %/100WBC (0.0-0.8); Platelet Count 6 10^3/uL (150-450); Red Blood Count 2.31 10^6/uL (3.63-4.92); Red Cell Distribution Width 14.8 % (12-17)
[2023-06-28] MEDS: ZOSYN 3.375 GM Q8H per EXTENDED INFUSION IV SCH (20:37)
[2023-06-29] MEDS: Furosemide 20 mg/2 ml IV VIAL IV ONE (03:19)
[2023-06-29 12:03] LABS: ABS Lymphocytes 0.4 10^3/uL (1.0-4.8); ABS Monocytes 0.4 10^3/uL (0.0-0.9); ABS Neutrophils 7.7 10^3/uL (1.5-7.6); ABS Nucleated RBC 0.02 10^3/ul; Hematocrit 25.3 % (35-45); Lymphocyte % 5.2 %; Mean Corpuscular Hemoglobin 30.9 pg (27-33); Mean Corpuscular Hgb Conc 35.7 g/dL (31-36); Mean Corpuscular Volume 86.6 fL (80-97); Mean Platelet Volume 8.4 fL (7.5-11.2); Nucleated Red Blood Cells % 0.2 %/100WBC (0.0-0.8); Platelet Count 12 10^3/uL (150-450); Red Blood Count 2.92 10^6/uL (3.63-4.92); Red Cell Distribution Width 14.6 % (12-17); White Blood Count 8.6 10^3/uL (3.8-11.8)
[2023-06-29 12:12] LABS: Creatinine, Serum 1.19 mg/dL (0.51-0.95); Magnesium 2.2 mg/dL (1.9-2.7); Potassium 3.4 mmol/L (3.5-5.0); eGFR CKD-EPI 47.4 (>60)
[2023-06-29] MEDS: Furosemide 40 mg/4 ml IV VIAL IV ONE (13:42)
[2023-06-29] MEDS: Magnesium Hydroxide LIQ 30 ML UDC PO ONE (17:32)
[2023-06-29] MEDS: KCL 20 MEQ/100 ML IVPREMIX 20 MEQ/100 ML BAG IV SCH (17:33)
[2023-06-29] MEDS ORDERED: Albuterol/Ipratropium NEB.SOL (2.5/0.5 MG) 3 ML NEB.SOLN INH PRN (18:04)
[2023-06-29 18:35] LABS: PCO2 Arterial 41 mmHg (35-45); PO2 Arterial 141 mmHg (80-100)
[2023-06-29 23:54] LABS: Hematocrit 25.1 % (35-45); Mean Corpuscular Hemoglobin 30.9 pg (27-33); Mean Corpuscular Hgb Conc 35.9 g/dL (31-36); Mean Corpuscular Volume 86.1 fL (80-97); Mean Platelet Volume 8.7 fL (7.5-11.2); Platelet Count 8 10^3/uL (150-450); Red Blood Count 2.92 10^6/uL (3.63-4.92); Red Cell Distribution Width 15.1 % (12-17); White Blood Count 8.2 10^3/uL (3.8-11.8)
[2023-06-30] MEDS: Levalbuterol 0.63MG/3ML NEB UNIT OF USE INH ONE (00:01)
[2023-06-30 00:08] LABS: Albumin 3.7 g/dL (3.2-5.2); Albumin/Globulin Ratio 1.2 (1-3); Calcium 8.9 mg/dL (8.6-10.3); Creatinine, Serum 1.69 mg/dL (0.51-0.95); Globulin 3.1 g/dL (2-4); Magnesium 2.6 mg/dL (1.9-2.7); Potassium 4.5 mmol/L (3.5-5.0); Total Bilirubin 0.8 mg/dL (0.2-1.0); Total Protein 6.8 g/dL (6.4-8.9); eGFR CKD-EPI 31.1 (>60)
[2023-06-30] MEDS: methylPREDNISolone SOD SUCC 125 mg 2 ML VIAL IV ONE (00:25)
[2023-06-30] MEDS: Dibucaine 1% OINT 28.35 GM TUBE PR SCH (01:11)
[2023-06-30] MEDS: Furosemide 40 mg/4 ml IV VIAL IV ONE (01:33)
[2023-06-30 03:42] LABS: Venous Bicarbonate HCO3 25.9 mmol/L (24-28)
[2023-06-30] MEDS: Metoprolol Tartrate 5 mg VIAL 5 ml VIAL (1 mg/ml) IV ONE (04:47)
[2023-06-30] MEDS: Magnesium Sulfate 2 gm BAG 2 GM/50 ML BAG IVPB ONE ×2 (05:31→07:50)
[2023-06-30 05:38] LABS: ABS Lymphocytes 0.3 10^3/uL (1.0-4.8); ABS Monocytes 0.3 10^3/uL (0.0-0.9); ABS Neutrophils 6.7 10^3/uL (1.5-7.6); ABS Nucleated RBC 0.01 10^3/ul; Hematocrit 23.2 % (35-45); Hemoglobin 8.1 g/dL (11.5-14.3); Lymphocyte % 3.7 %; Mean Corpuscular Hemoglobin 30.6 pg (27-33); Mean Corpuscular Hgb Conc 35.1 g/dL (31-36); Nucleated Red Blood Cells % 0.2 %/100WBC (0.0-0.8); Platelet Count 13 10^3/uL (150-450); Red Blood Count 2.66 10^6/uL (3.63-4.92); Red Cell Distribution Width 14.9 % (12-17); White Blood Count 7.4 10^3/uL (3.8-11.8)
[2023-06-30 06:04] LABS: Calcium 8.4 mg/dL (8.6-10.3); Creatinine, Serum 1.57 mg/dL (0.51-0.95); Magnesium 2.5 mg/dL (1.9-2.7); Potassium 4.2 mmol/L (3.5-5.0)
[2023-06-30] MEDS: ZOSYN 3.375 GM Q8H per EXTENDED INFUSION IV SCH (06:39)
[2023-06-30] MEDS: Albuterol/Ipratropium NEB.SOL (2.5/0.5 MG) 3 ML NEB.SOLN INH SCH ×2 (10:37→13:02)
[2023-06-30] MEDS ORDERED: Albuterol/Ipratropium NEB.SOL (2.5/0.5 MG) 3 ML NEB.SOLN INH SCH (13:00)
[2023-06-30 18:19] LABS: ABS Lymphocytes 0.3 10^3/uL (1.0-4.8); ABS Monocytes 0.2 10^3/uL (0.0-0.9); ABS Neutrophils 5.1 10^3/uL (1.5-7.6); ABS Nucleated RBC 0.01 10^3/ul; Hematocrit 21.6 % (35-45); Hemoglobin 7.7 g/dL (11.5-14.3); Lymphocyte % 5.2 %; Mean Corpuscular Hgb Conc 35.8 g/dL (31-36); Mean Corpuscular Volume 86.6 fL (80-97); Mean Platelet Volume 7.4 fL (7.5-11.2); Nucleated Red Blood Cells % 0.1 %/100WBC (0.0-0.8); Platelet Count 14 10^3/uL (150-450); Red Cell Distribution Width 14.7 % (12-17); White Blood Count 5.6 10^3/uL (3.8-11.8)
[2023-06-30] MEDS: Metoprolol Tartrate 5 mg VIAL 5 ml VIAL (1 mg/ml) IV PRN (20:05)
[2023-07-01] MEDS: Furosemide 40 mg/4 ml IV VIAL IV SLOW PU ONE (03:05)
[2023-07-01 06:04] LABS: Urine Appearance Clear; Urine Bilirubin Negative (Negative); Urine Blood 3+ (Negative); Urine Color Colorless; Urine Glucose Negative (Negative); Urine Ketones Negative (Negative); Urine Nitrite Negative (Negative); Urine Protein Negative (Negative); Urine Specific Gravity 1.009 (1.002-1.030); Urine Urobilinogen Negative (Negative)
[2023-07-01 06:16] LABS: Urine Bacteria Absent /HPF (Absent); Urine Red Blood Cell 3+(>10/hpf) /HPF (0-Trace); Urine Squamous Epithelial Cell Present /HPF (Absent); Urine White Blood Cell Trace(0-5/hpf) /HPF (0-Trace)
[2023-07-01 06:18] LABS: Hematocrit 25.8 % (35-45); Hemoglobin 9.1 g/dL (11.5-14.3); Mean Corpuscular Hemoglobin 30.5 pg (27-33); Mean Corpuscular Hgb Conc 35.1 g/dL (31-36); Mean Corpuscular Volume 86.8 fL (80-97); Red Blood Count 2.97 10^6/uL (3.63-4.92); Red Cell Distribution Width 14.4 % (12-17); White Blood Count 4.6 10^3/uL (3.8-11.8)
[2023-07-01 06:29] LABS: Calcium 8.6 mg/dL (8.6-10.3); Creatinine, Serum 1.19 mg/dL (0.51-0.95); Magnesium 2.5 mg/dL (1.9-2.7); Phosphorus 4.7 mg/dL (2.5-5.0); eGFR CKD-EPI 47.4 (>60)
[2023-07-01 07:32] LABS: ABS Lymphocytes 0.2 10^3/uL (1.0-4.8); ABS Monocytes 0.2 10^3/uL (0.0-0.9); ABS Neutrophils 4.2 10^3/uL (1.5-7.6); Eosinophil % 0.1 %; Lymphocyte % 4.5 %; Mean Platelet Volume 8.4 fL (7.5-11.2); Nucleated Red Blood Cells % 0.1 %/100WBC (0.0-0.8); Platelet Count 7 10^3/uL (150-450)
[2023-07-01] MEDS: Morphine 2 MG/ML SYRINGE IV ONE (10:54)
[2023-07-01] MEDS: LORazepam 2 MG/ML 1 mL Syringe IV ONE (11:01)
[2023-07-01] MEDS ORDERED: Morphine ORAL CONCENTRATE 5 MG/0.25 ML ORAL.SYRIN SL PRN (11:04)
[2023-07-01] MEDS ORDERED: LORazepam 2 mg VIAL 1 ml IV PUSH PRN (11:04)
[2023-07-01] MEDS: diazePAM INJ CARPUJECT 5 MG/ML SYRINGE IV ONE (11:09)
[2023-07-01] MEDS ORDERED: Morphine 4 MG/ML VIAL (1 ml) IV PRN (11:12)
[2023-07-01] MEDS ORDERED: Morphine 2 MG/ML SYRINGE IV PRN ×2 (11:12→11:30)
[2023-07-01] MEDS: Albuterol/Ipratropium NEB.SOL (2.5/0.5 MG) 3 ML NEB.SOLN INH SCH (11:22)
[2023-07-01] MEDS ORDERED: diazePAM INJ CARPUJECT 5 MG/ML SYRINGE IV PRN (11:41)
[2023-07-01] MEDS: Morphine ORAL CONCENTRATE 5 MG/0.25 ML ORAL.SYRIN SL PRN (11:47)
[2023-07-01 18:03] LABS: TSH Ultra Thyroid Stim Horm 1.07 mcIU/mL (0.34-5.60)
[2023-07-02] MEDS: Morphine 2 MG/ML SYRINGE IV PRN (04:55)
[2023-07-02] MEDS ORDERED: Morphine ORAL CONCENTRATE 5 MG/0.25 ML ORAL.SYRIN PO PRN (10:54)
[2023-07-02] MEDS ORDERED: Immune Globulin IV Order (CPOE ENTRY PROTOCOL) IV SCH (11:00)
[2023-07-02] MEDS: [UNRECOGNIZED DRUG - MIXTURE] IV ONE (13:04)
[2023-07-02 14:53] VITALS: BP 141/74
[2023-07-02] MEDS: Morphine ORAL CONCENTRATE 5 MG/0.25 ML ORAL.SYRIN PO PRN (18:08)
[2023-07-03] MEDS: Morphine ORAL CONCENTRATE 5 MG/0.25 ML ORAL.SYRIN SL SCH ×2 (08:49→18:11)
[2023-07-03] MEDS ORDERED: Morphine ORAL CONCENTRATE 5 MG/0.25 ML ORAL.SYRIN SL PRN (14:10)
[2023-07-03] MEDS: Morphine ORAL CONCENTRATE 5 MG/0.25 ML ORAL.SYRIN PO PRN (14:29)
[2023-07-04] MEDS ORDERED: Albuterol/Ipratropium NEB.SOL (2.5/0.5 MG) 3 ML NEB.SOLN INH PRN (23:41)
[2023-07-05] MEDS: Morphine ORAL CONCENTRATE 5 MG/0.25 ML ORAL.SYRIN SL SCH (15:25)
== END 2023-07-06 03:15 | disposition expired | DRG 205 ==
LOC: ED 15:52 → EDHOLD 15:52 → SUATTDRO 22:51 → MEDTELE 06-26 03:05 → SUATTDRO 06-27 13:15
PROVIDERS: ADMIT Internal Medicine; ATTEND Student in an Organized Health Care Education/Training Program